=== PATIENT | male | born 1980 | race Caucasian/White ===

== ENCOUNTER 2021-11-03 15:15 | Outpatient (CLI) | payer MEDICARE | END 2021-11-03 15:16 | disposition home or self-care (01) | LOC: BICULT 15:15 | PROVIDERS: ATTEND Urology | DX: Z43.5 Encounter for attention to cystostomy (principal); N31.9 Neuromuscular dysfunction of bladder, unspecified; G35 Multiple sclerosis | CPT/HCPCS: 76770 ==

== ENCOUNTER 2023-03-31 10:38 | Outpatient (CLI) | payer MEDICARE | END 2023-03-31 10:39 | disposition home or self-care (01) | LOC: RAD 10:38 | PROVIDERS: ATTEND Nurse Practitioner Family | DX: G35 Multiple sclerosis (principal); R13.10 Dysphagia, unspecified | CPT/HCPCS: 74230 ==

== ENCOUNTER 2023-07-21 11:45 | Outpatient (CLI) | payer MEDICARE | END 2023-07-21 11:46 | disposition home or self-care (01) | LOC: MRI 11:45 | PROVIDERS: ATTEND Psychiatry & Neurology Neurology | DX: G35 Multiple sclerosis (principal) | CPT/HCPCS: 72156; 72157 ==